=== PATIENT | female | born 1985 | race Caucasian/White ===

== ENCOUNTER 2017-09-23 18:43 | Inpatient (IN) | payer MEDICAID ==
[~2017-09-23] VITALS: Ht 175.3 cm; Wt 88.0 kg
[2017-09-23 19:20] LABS: MICROSCOPIC INDICATED
[2017-09-23] MEDS ORDERED: OXYTOCIN 30U/ 0.9% NaCL 500ML 500 ML ONE (19:20)
[2017-09-23] MEDS ORDERED: LIDOCAINE/PF 1%, 30ML ONE (19:20)
[2017-09-23] MEDS ORDERED: MISOPROSTOL 200 MCG TABLET ONE (19:20)
[2017-09-23] MEDS ORDERED: NEWBORN KIT ONE (19:20)
[2017-09-23] MEDS: D5%-LACTATED RINGERS 1,000 ML IV SCH (19:23)
[2017-09-23] MEDS ORDERED: FENTANYL/BUPIV./NS/PF 250 ML EPIDCONT SCH ×2 (19:23→20:42)
[2017-09-23] MEDS ORDERED: LACTATED RINGERS 1,000 ML IV SCH ×2 (19:23→20:42)
[2017-09-23] MEDS ORDERED: OXYTOCIN 30U/ 0.9% NaCL 500ML 500 ML IV ONE (19:23)
[2017-09-23] MEDS ORDERED: ONDANSETRON 2MG/ML, 2ML IVPush PRN ×2 (19:30→21:00)
[2017-09-23] MEDS ORDERED: ALUMINUM/MAG/SIMETHICONE 30 ML UDC PO PRN (19:30)
[2017-09-23] MEDS ORDERED: CALCIUM CARBONATE 500 MG TAB.CHEW PO PRN (19:30)
[2017-09-23] MEDS ORDERED: LACTATED RINGERS 1,000 ML IVBOLUS PRN ×2 (19:30→21:00)
[2017-09-23] MEDS ORDERED: SODIUM CITRATE/CITRIC ACID 30 ML UDC PO PRN (19:30)
[2017-09-23] MEDS ORDERED: FENTANYL PF 100 MCG/2ML IVPush PRN (19:30)
[2017-09-23 19:34] LABS: AMPHETAMINE SCREEN, URINE Negative (Negative); BARBITURATE SCREEN, URINE Negative (Negative); BENZODIAZEPINE SCREEN, URINE Negative (Negative); CANNABINOID SCREEN, URINE Positive (Negative); COCAINE SCREEN, URINE Negative (Negative); METHADONE SCREEN, URINE Negative (Negative); OPIATE SCREEN, URINE Negative (Negative)
[2017-09-23 19:55] LABS: BASOPHILS # (AUTO) 0.03 x10^3/uL (0-0.1); BASOPHILS % (AUTO) 0 % (0-1); EOSINOPHILS # (AUTO) 0.07 x10^3/uL (0-0.4); EOSINOPHILS % (AUTO) 1 % (1-7); LYMPHOCYTES # (AUTO) 2.57 x10^3/uL (1-3.4); LYMPHOCYTES % (AUTO) 24 % (22-44); MD NO; MEAN CORPUSCULAR HEMOGLOBIN 28.2 pg (27.0-34.8); MEAN CORPUSCULAR HGB CONC 33.2 g/dL (32.4-35.8); MEAN CORPUSCULAR VOLUME 84.9 fL (80-100); MEAN PLATELET VOLUME 7.1 fL (7.4-10.4); MONOCYTES # (AUTO) 0.77 x10^3/uL (0.2-0.8); MONOCYTES % (AUTO) 7 % (2-9); NEUTROPHILS # (AUTO) 7.15 x10^3/uL (1.8-6.8); NEUTROPHILS % (AUTO) 68 % (42-75); PLATELET COUNT 319 x10^3/uL (130-400); RED BLOOD COUNT 3.78 x10^6/uL (3.82-5.3); RED CELL DISTRIBUTION WIDTH 14.3 % (9.6-15.2)
[2017-09-23] MEDS ORDERED: FENTANYL PF 100 MCG/2ML ONE (19:55)
[2017-09-23] MEDS: LACTATED RINGERS 1,000 ML IV SCH ×2 (20:05→21:19)
[2017-09-23] MEDS ORDERED: BUPIVACAINE/PF 0.25% ONE (20:21)
[2017-09-23] MEDS ORDERED: NALOXONE 0.4 MG/ML, 1ML IVPush PRN (21:00)
[2017-09-23] MEDS ORDERED: DIPHENHYDRAMINE 50 MG/ML, 1ML IVPush PRN (21:00)
[2017-09-23] MEDS ORDERED: EPHEDRINE 50 MG/ML, 1ML IVPush PRN (21:00)
[2017-09-23] MEDS ORDERED: ONDANSETRON 2MG/ML, 2ML ONE (21:12)
[2017-09-24] MEDS: OXYTOCIN 30U/ 0.9% NaCL 500ML 500 ML IV SCH ×8 (00:23→20:23)
[2017-09-24] MEDS ORDERED: OXYTOCIN 10 UNITS/ML, 1ML IM PRN (00:30)
[2017-09-24] MEDS ORDERED: MAGNESIUM HYDROXIDE 8%, 30ML UDC PO PRN (00:30)
[2017-09-24] MEDS ORDERED: ACETAMINOPHEN 325 MG TABLET PO PRN ×2 (00:30)
[2017-09-24] MEDS ORDERED: ONDANSETRON 2MG/ML, 2ML IV PRN (00:30)
[2017-09-24] MEDS ORDERED: OXYcodone IR 5MG TABLET PO PRN (00:30)
[2017-09-24] MEDS ORDERED: METHYLERGONOVINE 0.2 MG/ML IM PRN (00:30)
[2017-09-24] MEDS ORDERED: CALCIUM CARBONATE 500 MG TAB.CHEW PO PRN (00:30)
[2017-09-24] MEDS ORDERED: OXYTOCIN 30U/ 0.9% NaCL 500ML 500 ML ONE (02:14)
[2017-09-24 02:40] VITALS: BP 121/80
[2017-09-24] MEDS: D5%-LACTATED RINGERS 1,000 ML IV SCH (03:23)
[2017-09-24 05:25] VITALS: BP 107/51
[2017-09-24] MEDS: IBUPROFEN 800 MG TABLET PO PRN ×3 (05:39→22:04)
[2017-09-24] MEDS: LACTATED RINGERS 1,000 ML IV SCH (05:40)
[2017-09-24 06:55] VITALS: BP 121/86
[2017-09-24] MEDS: PRENATAL VIT/IRON/FA 1 EACH TABLET PO SCH (07:57)
[2017-09-24] MEDS: DOCUSATE 100 MG CAPSULE PO PRN ×2 (07:58→22:04)
[2017-09-24 08:02] LABS: BASOPHILS # (AUTO) 0.04 x10^3/uL (0-0.1); BASOPHILS % (AUTO) 0 % (0-1); EOSINOPHILS % (AUTO) 1 % (1-7); LYMPHOCYTES # (AUTO) 1.97 x10^3/uL (1-3.4); LYMPHOCYTES % (AUTO) 19 % (22-44); MD NO; MEAN CORPUSCULAR HEMOGLOBIN 27.7 pg (27.0-34.8); MEAN CORPUSCULAR HGB CONC 32.9 g/dL (32.4-35.8); MEAN CORPUSCULAR VOLUME 84.2 fL (80-100); MEAN PLATELET VOLUME 6.6 fL (7.4-10.4); MONOCYTES # (AUTO) 0.68 x10^3/uL (0.2-0.8); MONOCYTES % (AUTO) 7 % (2-9); NEUTROPHILS # (AUTO) 7.67 x10^3/uL (1.8-6.8); NEUTROPHILS % (AUTO) 73 % (42-75); PLATELET COUNT 297 x10^3/uL (130-400); RED BLOOD COUNT 3.73 x10^6/uL (3.82-5.3); RED CELL DISTRIBUTION WIDTH 14.1 % (9.6-15.2)
[2017-09-24] MEDS: OXYcodone/APAP 5/325MG TABLET PO PRN ×3 (09:29→22:04)
[2017-09-24 11:50] VITALS: BP 138/85
[2017-09-24 15:50] VITALS: BP 129/83
[2017-09-24 19:30] VITALS: BP 117/78
[2017-09-25] MEDS: IBUPROFEN 800 MG TABLET PO PRN ×2 (05:57→13:41)
[2017-09-25] MEDS: OXYcodone/APAP 5/325MG TABLET PO PRN ×2 (05:57→13:41)
[2017-09-25 08:40] VITALS: BP 133/79
[2017-09-25] MEDS: PRENATAL VIT/IRON/FA 1 EACH TABLET PO SCH (09:00)
[2017-09-25] MEDS ORDERED: IBUP200T49 PO (14:10)
== END 2017-09-25 16:00 | disposition home or self-care (01) | DRG 775 ==
LOC: LDOP 18:43 → LDIP 19:21 → 2NW 09-24 02:16
PROVIDERS: ADMIT Obstetrics & Gynecology; ATTEND Obstetrics & Gynecology
PROC: 3E0R3BZ Introduction of Anesthetic Agent into Spinal Canal, Percutaneous Approach (ICD-10-PCS; principal; 2017-09-23)
PROC: 10E0XZZ Delivery of Products of Conception, External Approach (ICD-10-PCS; 2017-09-23)
PROC: 00HU33Z Insertion of Infusion Device into Spinal Canal, Percutaneous Approach (ICD-10-PCS; 2017-09-23)
DX: O99.02 Anemia complicating childbirth (principal); O99.354 Diseases of the nervous system complicating childbirth; O99.324 Drug use complicating childbirth; Z37.0 Single live birth; D64.9 Anemia, unspecified; F12.90 Cannabis use, unspecified, uncomplicated; Z3A.40 40 weeks gestation of pregnancy; G43.909 Migraine, unspecified, not intractable, without status migrainosus; O34.211 Maternal care for low transverse scar from previous cesarean delivery
CPT/HCPCS: 36415; 80307; 81001; 85025; 86850; 86900; J2405; J3010; J2590; J7120

== ENCOUNTER 2017-11-27 13:28 | Emergency (ER) | payer MEDICAID ==
[~2017-11-27] VITALS: Ht 175.3 cm; Wt 73.0 kg
[~2017-11-27 13:28] MED LIST: IBUP200T49 PO
[2017-11-27 13:33] VITALS: BP 126/83
== END 2017-11-27 14:28 | disposition home or self-care (01) ==
LOC: ED 14:20
DX: F41.1 Generalized anxiety disorder (principal); F17.200 Nicotine dependence, unspecified, uncomplicated
CPT/HCPCS: 99284

== ENCOUNTER 2018-02-12 12:35 | Emergency (ER) | payer MEDICAID ==
[~2018-02-12] VITALS: Ht 175.3 cm; Wt 70.5 kg
[2018-02-12 12:40] VITALS: BP 132/85
== END 2018-02-12 13:10 | disposition home or self-care (01) ==
LOC: ED 13:04
DX: H66.001 Acute suppurative otitis media without spontaneous rupture of ear drum, right ear (principal); Z87.891 Personal history of nicotine dependence; F41.1 Generalized anxiety disorder
CPT/HCPCS: 99283

== ENCOUNTER 2018-06-17 22:37 | Emergency (ER) | payer MEDICAID ==
[~2018-06-17] VITALS: Ht 175.3 cm; Wt 65.2 kg
[2018-06-17 22:40] VITALS: BP 149/84
== END 2018-06-17 23:33 | disposition home or self-care (01) ==
LOC: ED 23:27
DX: H65.01 Acute serous otitis media, right ear (principal); F41.1 Generalized anxiety disorder
CPT/HCPCS: 99283

== ENCOUNTER 2019-01-28 07:23 | Emergency (ER) | payer MEDICAID ==
[~2019-01-28] VITALS: Ht 175.3 cm; Wt 68.0 kg
[2019-01-28 07:25] VITALS: BP 150/89
--- NOTE | 2019-01-28 08:07 | NUR ---
Patient/Caregiver given discharge instructions and they have confirmed that they understand the instructions. Patient ambulatory with steady gait.
== END 2019-01-28 08:08 | disposition home or self-care (01) ==
LOC: ED 07:41
DX: K02.9 Dental caries, unspecified (principal); F17.200 Nicotine dependence, unspecified, uncomplicated
CPT/HCPCS: 99283

== ENCOUNTER 2019-04-28 04:58 | Emergency (ER) | payer MEDICAID ==
[~2019-04-28] VITALS: Ht 175.3 cm; Wt 66.8 kg
[2019-04-28 05:00] VITALS: BP 128/90
--- NOTE | 2019-04-28 05:06 | NUR ---
PT AMBULATES FROM LOBBY TO ROOM WITH STEADY GAIT.
== END 2019-04-28 06:10 | disposition home or self-care (01) ==
LOC: ED 05:15
DX: H10.023 Other mucopurulent conjunctivitis, bilateral (principal); F17.200 Nicotine dependence, unspecified, uncomplicated
CPT/HCPCS: 99283

== ENCOUNTER 2019-05-23 18:45 | Emergency (ER) | payer SELFPAY ==
[~2019-05-23] VITALS: Ht 175.3 cm; Wt 72.9 kg
[2019-05-23 19:02] VITALS: BP 111/70
[2019-05-23] MEDS ORDERED: ACETAMINOPHEN 500 MG TABLET PO ONE (19:30)
[2019-05-23] MEDS ORDERED: ACETAMINOPHEN 500 MG TABLET ONE (19:32)
== END 2019-05-23 19:39 | disposition home or self-care (01) ==
LOC: ED 19:15
DX: K08.89 Other specified disorders of teeth and supporting structures (principal)
CPT/HCPCS: 99283